=== PATIENT | female | born 1985 | race Hispanic/Latino ===

== ENCOUNTER → 2020-02-24 | Outpatient (CLI) | payer MEDICAID | END | disposition home or self-care (01) | LOC: EDSTATUS 10:00 → LAB 11:30 → EDSTATUS 03-02 08:00 | PROVIDERS: ATTEND Obstetrics & Gynecology | DX: O34.219 Maternal care for unspecified type scar from previous cesarean delivery (principal); O99.213 Obesity complicating pregnancy, third trimester; O09.893 Supervision of other high risk pregnancies, third trimester; O09.523 Supervision of elderly multigravida, third trimester; E66.9 Obesity, unspecified; Z20.828 Contact with and (suspected) exposure to other viral communicable diseases; Z3A.36 36 weeks gestation of pregnancy | CPT/HCPCS: A6260; U0003 ==